=== PATIENT | male | born 1960 | race Caucasian/White ===

== ENCOUNTER 2018-11-12 22:17 | Emergency (ER) | payer BC ==
[2018-11-12] MEDS ORDERED: predniSONE 20 MG TAB PO ONE (22:27)
[2018-11-12] MEDS ORDERED: COLCHICINE 0.6 MG TAB PO ONE (22:28)
[2018-11-12 22:36] VITALS: TEMP 99.3
--- NOTE | 2018-11-12 22:50 | RAD ---
CLINICAL HISTORY: knee pain 2 days COMPARISON: None. TECHNIQUE: XR KNEE 4 OR MORE VIEWS 11/12/2018 10:28 PM CDT FINDINGS: There is a nonacute appearing fracture of the osteophyte of the inferior pole of the patella. There is a moderate knee effusion. Soft tissues are unremarkable. IMPRESSION: Near fusion with probable old inferior patellar fracture. CT may be necessary. Electronically signed by: Kirby Peña MD 11/12/2018 10:49 PM CDT
--- NOTE | 2018-11-12 23:26 | ED.PDOC ---
History of Present Illness - General Chief Complaint: Lower Extremity Injury Stated Complaint: Left knee pain Time Seen by Provider: 11/12/18 22:19 Source: patient Exam Limitations: no limitations - History of Present Illness Initial Comments: the patient's 58-year-old male presenting to emergency room secondary to 24-48 hours of pain in the left knee. Pain is worse over the medial collateral and lateral collateral ligaments. He does have some guarding with the anterior drawer sign. No recent obvious trauma. He has had multiple injury to the knee in the past. He thinks he has had some gout in the past and his ankle and his foot. He does have an effusion surrounding the knee. Minimal erythema. It does not appear to be infection at this time. Timing/Duration: other Severity: moderate Improving Factors: immobilization Worsening Factors: movement Associated Symptoms: denies symptoms Allergies/Adverse Reactions: Allergies NO KNOWN ALLERGY Allergy (Verified 11/05/15 20:38) Home Medications: Ambulatory Orders Ibuprofen [Advil] 400 mg PO Q6HR PRN 11/12/18 predniSONE [Prednisone] 20 mg PO DAILY #3 tab 11/12/18 Review of Systems - Review of Systems Constitutional: States: no symptoms reported EENTM: States: no symptoms reported Respiratory: States: no symptoms reported Cardiology: States: no symptoms reported Gastrointestinal/Abdominal: States: no symptoms reported Genitourinary: States: no symptoms reported Musculoskeletal: States: see HPI Skin: States: no symptoms reported Neurological: States: no symptoms reported Endocrine: States: no symptoms reported All other Systems: No Change from Baseline Past Medical History (General) - Patient Medical History Hx Seizures: No Hx Stroke: No Hx Dementia: No Hx Asthma: No Hx of COPD: No Hx Cardiac Disorders: No Hx Congestive Heart Failure: No Hx Pacemaker: No Hx Hypertension: No Hx Thyroid Disease: No Hx Diabetes: No Hx Gastroesophageal Reflux: No Hx Renal Disease: No Hx of HIV: No Hx MRSA: No - Vaccination History Hx Tetanus, Diphtheria Vaccination: Yes Hx Influenza Vaccination: No Hx Pneumococcal Vaccination: No - Social History Hx Tobacco Use: No Hx Chewing Tobacco Use: Yes Hx Alcohol Use: Yes Family Medical History - Family History Father Family History: Unknown Living Status: Unknown Physical Exam - Physical Exam General Appearance: Alert, No apparent distress Eye Exam: bilateral normal Ears, Nose, Throat: hearing grossly normal, normal ENT inspection Neck: full range of motion, supple Respiratory: no respiratory distress, no accessory muscle use Cardiovascular/Chest: normal peripheral pulses, no edema Peripheral Pulses: dorsalis pedis,right: 2+, dorsalis pedis,left: 2+, posterior tibialis,right: 2+, posterior tibialis,left: 2+ Rectal Exam: deferred Extremity: no pedal edema, no calf tenderness, normal capillary refill, other - see history of present illness. Range of motion is preserved. No tenderness to palpation of the knee. 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 The patient was given a trial dose of prednisone and colchicine. He'll be written for another 3 days of prednisone as an outpatient help reduce inflammation. He is also going to be placed in a knee immobilizer. If the pain is completely gone tomorrow then this can be discontinued. otherwise he needs to follow up with orthopedics later in the week for evaluation of the knee. He does have tenderness to palpation over the medial collateral and lateral collateral ligaments. He does have some guarding with anterior drawer test. he needs to keep himself well-hydrated. ER warnings were given. X-ray shows no evidence of any obvious acute pathology. Departure - Departure Clinical Impression: Left knee pain Qualifiers: Chronicity: acute Qualified Code(s): M25.562 - Pain in left knee Disposition: Discharge to Home or Self Care Condition: Fair Departure Forms: ED Discharge - Pt. Copy, Patient Portal Self Enrollment Diet: regular diet Activity: other Referrals: Frederick Alberts MD [Primary Care Provider] - 1-2 Weeks Prescriptions: predniSONE [Prednisone] 20 mg PO DAILY #3 tab Home Medications: Ambulatory Orders Ibuprofen [Advil] 400 mg PO Q6HR PRN 11/12/18 predniSONE [Prednisone] 20 mg PO DAILY #3 tab 11/12/18 Additional Instructions: the patient is 58-year-old male presenting to the emergency room secondary to left knee pain for the last couple of days. The patient was given a trial dose of prednisone and colchicine. He'll be written for another 3 days of prednisone as an outpatient help reduce inflammation. He is also going to be placed in a knee immobilizer. If the pain is completely gone tomorrow then this can be discontinued. otherwise he needs to follow up with orthopedics later in the week for evaluation of the knee. He does have tenderness to palpation over the medial collateral and lateral collateral ligaments. He does have some guarding with anterior drawer test. he needs to keep himself well-hydrated. ER warnings were given. X-ray shows no evidence of any obvious acute pathology.
[2018-11-12 23:36] VITALS: BP 170/95; O2SAT 98
== END 2018-11-12 23:36 | disposition home or self-care (01) ==
LOC: ER 22:17
DX: M25.562 Pain in left knee (principal); Z87.891 Personal history of nicotine dependence
CPT/HCPCS: 73562; J7512

== ENCOUNTER → 2018-12-03 | Outpatient (CLI) | payer BC ==
--- NOTE | 2018-12-03 12:50 | RAD ---
PROVIDED CLINICAL HISTORY/REASON FOR EXAM: PAIN IN LEFT KNEE Findings: Number of images: One Location: Left knee Evaluation limited by the single radiograph. Mild medial compartment narrowing. No acute fracture or dislocation. No focal soft tissue swelling. IMPRESSION: Mild degenerative changes in the medial compartment of the left knee. No acute fracture identified. Electronically signed by: Mario Conway MD 12/03/2018 12:48 PM CDT
--- NOTE | 2018-12-03 12:55 | RAD ---
PROVIDED CLINICAL HISTORY/REASON FOR EXAM: PAIN IN RIGHT KNEE Findings: Number of images: Four Location: Right knee Obliteration of the femorotibial joint space with lateral tibial translation. Surgical elva overlie the lateral femoral condyle and occipital lateral tibia. Tricompartmental osteophytes. Trace joint effusion. Patellofemoral joint space narrowing. IMPRESSION: Marked right knee osteoarthritis. Electronically signed by: Mario Conway MD 12/03/2018 12:53 PM CDT
--- NOTE | 2018-12-03 13:10 | RAD ---
EXAM DESCRIPTION: Pelvis CLINICAL HISTORY: 58 years Male, PAIN IN RIGHT HIP COMPARISON: None. TECHNIQUE: AP radiograph of the pelvis was performed. FINDINGS: The pelvic ring appears grossly intact on this single AP radiograph. No acute fracture or dislocation. Bilateral sacroiliac joints appear normal. Mild degenerative changes identified in the bilateral hip joints. The visualized lumbo-sacral spine demonstrates mild degenerative changes. IMPRESSION: Single AP radiograph of the pelvis demonstrates grossly intact pelvic ring. Mild bilateral hip osteoarthritis. Electronically signed by: Ivet Mathews MD 12/03/2018 1:09 PM CDT
== END ==
LOC: RAD 09:23
PROVIDERS: ATTEND Orthopaedic Surgery
DX: M16.0 Bilateral primary osteoarthritis of hip (principal); M17.0 Bilateral primary osteoarthritis of knee

== ENCOUNTER → 2019-02-05 | Outpatient (CLI) | payer BC | LOC: LAB.O 11:04 | PROVIDERS: ATTEND Orthopaedic Surgery | DX: Z01.818 Encounter for other preprocedural examination (principal) ==